=== PATIENT | male | born 1995 | race African-American/Black ===

== ENCOUNTER 2017-12-15 22:05 | Emergency (ER) | payer SELFPAY ==
--- NOTE | 2017-12-15 22:26 | RAD ---
PORTABLE CHEST: 12/15/17 HISTORY: Cough. Lung delong are clear. Heart and mediastinum appear normal. IMPRESSION: No acute findings. POS: [facility]
[2017-12-15 22:45] LABS: #Lymphocytes 1.2 thou/uL (1.20-3.40); #Monocytes 0.7 thou/uL (0.11-0.59); #Neutrophils 5.9 thou/uL (1.40-6.50); %Eosinophils 0.1 % (0.0-10.0); %Lymphocytes 14.9 % (21.0-51.0); %Monocytes 8.6 % (0.0-10.0); %Neutrophils 76.4 % (42.0-75.0); Hemoglobin 12.7 g/dL (14.0-18.0); Mean Corpuscular Hemoglobin 27.7 pg (27.0-31.0); Mean Corpuscular Volume 83.7 fL (78.0-98.0); Mean Platelet Volume 7.6 fL (7.4-10.4); Platelet Count 143 thou/uL (130-400); RBC Distribution Width 11.6 % (11.5-14.5); White Blood Cell (WBC) Count 7.8 thou/uL (4.8-10.8)
[2017-12-15] MEDS ORDERED: Acetaminophen 500 MG TAB ONE (22:53)
[2017-12-15 22:58] LABS: Bilirubin Small (Negative); Blood, Urine Negative (Negative); Clarity CLEAR (Clear); Glucose, Urine (Dipstick) Negative (Negative); Leukocyte Negative (Negative); Nitrite Negative (Negative); Protein, Urine (Dipstick) Trace mg/dL (Neg-Trace); Specific Gravity, Urine 1.028 (1.002-1.036)
[2017-12-15 23:03] LABS: ALT (SGPT) 12 U/L (8-55); AST (SGOT) 20 U/L (5-34); Albumin 4.3 g/dL (3.5-5.0); Alkaline Phosphatase 94 U/L (40-150); Anion Gap 11 mmol/L (10-20); BUN (Urea Nitrogen) 6 mg/dL (8.9-20.6); Bilirubin, Total 0.4 mg/dL (0.2-1.2); Calc. Creatinine Clearance 0 mL/min (70-130); Calcium 9.4 mg/dL (7.8-10.44); Carbon Dioxide 27 mmol/L (22-29); Chloride 104 mmol/L (98-107); Estimated GFR-MDRD Greater than 90; Globulin 3.9 g/dL (2.4-3.5); Glucose 147 mg/dL (70-105); Potassium 3.6 mmol/L (3.5-5.1); Protein, Total 8.2 g/dL (6.0-8.3); Sodium 138 mmol/L (136-145)
[2017-12-15 23:24] LABS: MONO NEGATIVE CONTROL ZONE White (Negative) (White); MONO POSITIVE CONTROL Pink Line (Positive) (PINK/RED); Mononucleosis NEGATIVE (NEGATIVE)
== END 2017-12-16 00:17 | disposition home or self-care (01) ==
LOC: ERS 22:05
DX: B34.9 Viral infection, unspecified (principal); J02.9 Acute pharyngitis, unspecified
CPT/HCPCS: 36415; 71045; 80053; 81003; 85025; 86308; 87081; 87430

== ENCOUNTER 2018-01-23 14:21 | Emergency (ER) | payer SELFPAY | END 2018-01-23 15:18 | disposition home or self-care (01) | LOC: ERS 14:21 | DX: L42 Pityriasis rosea (principal) | CPT/HCPCS: 99282 ==

== ENCOUNTER 2025-03-20 04:55 | Emergency (ER) | payer SELFPAY ==
[2025-03-20] MEDS ORDERED: Oxymetazoline HCl 0.05% (30 ML BOT) ONE (05:51)
== END 2025-03-20 08:30 | disposition home or self-care (01) ==
LOC: ERS 04:55
DX: R04.0 Epistaxis (principal)
CPT/HCPCS: 30905; 87081; 87430